=== PATIENT | male | born 1970 | race Caucasian/White ===

== ENCOUNTER 2018-07-19 11:58 | Emergency (ER) | payer OTHER ==
[2018-07-19] MEDS ORDERED: NS 0.9% 1000 ML** 1,000 ML IV ONE (12:15)
--- NOTE | 2018-07-19 12:23 | ED ---
Complex/Multi-Sys Presentation - HPI Summary HPI Summary: This pt is a 47 y/o male presenting to [facility] c/o generalized weakness and decreased energy. Pt reports diffuse general weakness. Additionally reports diffuse abd pain, mostly in the upper abdomen. He rates his pain 3/10 in severity. Denies cough, cold symptoms, headache, chest pain. 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 He is a heavy every day smoker, 3PPD. Denies any drug use. PMHx includes COPD, asthma, stage 4 liver cirrhosis, arthritis, abd hernia. Pt allergic to codeine, IV and PO dye, Penicillin, Tramadol. - History Of Current Complaint Chief Complaint: EDWeakness Time Seen by Provider: 07/19/18 12:11 Hx Obtained From: Patient Onset/Duration: Lasting Days, Still Present Timing: Days Severity Currently: Moderate Location: Pain At: - upper abdomen Aggravating Factor(s): nothing Alleviating Factor(s): nothing Associated Signs And Symptoms: Positive: Weakness - generalized, Abdominal Pain , Other - NEG: cold symptoms. Negative: Headache, Cough, Chest Pain, Fever - Allergies/Home Medications Allergies/Adverse Reactions: Allergies Allergy/AdvReac Type Severity Reaction Status Date / Time bee venom protein (honey bee) Allergy Severe Anaphylatic Verified 07/19/18 12:25 Shock codeine Allergy Intermediate Vomiting Verified 07/19/18 12:21 Iodinated Contrast- Oral and Allergy Intermediate Swelling Verified 07/19/18 12: 25 IV Dye Penicillins Allergy Intermediate Anaphylatic Verified 07/19/18 12:21 Shock tramadol Allergy Intermediate Vomiting Verified 07/19/18 12:21 Home Medications: Home Medications Albuterol HFA INHALER* [Ventolin HFA Inhaler*] 2 puff INH QID PRN 07/19/18 [ History Confirmed 07/19/18] Albuterol/Ipratropium RESP(NF) [Combivent Respimat(NF)] 1 puff INH DAILY [History Confirmed 07/19/18] Benzonatate CAP* [Tessalon 100 MG CAP*] 100 mg PO TID PRN 07/19/18 [History Confirmed 07/19/18] Cetirizine* [ZyrTEC 10 MG TAB*] 10 mg PO BEDTIME 07/19/18 [History Confirmed 06/03] Folic Acid TAB* [Folvite TAB*] 1 mg PO DAILY 07/19/18 [History Confirmed ] Furosemide TAB* [Lasix TAB*] 40 mg PO DAILY 07/19/18 [History Confirmed 07/19/18 ] Gabapentin CAP(*) [Neurontin 400 mg CAP(*)] 1,200 mg PO TID 07/19/18 [History Confirmed 07/19/18] Ibuprofen TAB* [Motrin TAB* 400 MG] 400 mg PO QID PRN 07/19/18 [History Confirmed 07/19/18] Lisinopril TAB* [Prinivil TAB*] 5 mg PO DAILY 07/19/18 [History Confirmed ] Nadolol TAB* [Corgard TAB*] 40 mg PO DAILY 07/19/18 [History Confirmed 07/19/18] Naloxone Nasal [place]* [Narcan Nasal [place]] 4 mg NASAL DAILY PRN 07/19/18 [ History Confirmed 07/19/18] Nicotine PATCH 21 MG/24 HR* 21 mg TRANSDERM DAILY 07/19/18 [History Confirmed ] Pantoprazole TAB * [Protonix TAB*] 40 mg PO DAILY 07/19/18 [History Confirmed ] Potassium Chlor TAB* [Klor Con ER TAB*] 10 meq PO DAILY 07/19/18 [History Confirmed 07/19/18] Spironolactone (NF) [Spironolactone 50 MG (NF)] 100 mg PO DAILY 07/19/18 [ History Confirmed 07/19/18] Ursodiol 250 mg PO TID 07/19/18 [History Confirmed 07/19/18] hydrOXYzine HCL TAB* [Atarax 25 MG TAB*] 25 mg PO QID PRN MDD 50 mg 07/19/18 [ History Confirmed 07/19/18] tiZANidine TAB* [Zanaflex TAB*] 4 mg PO TID 07/19/18 [History Confirmed 07/19/18 ] traZODone TAB* [Desyrel TAB*] 150 mg PO BEDTIME 07/19/18 [History Confirmed 06/03] PMH/Surg Hx/FS Hx/Imm Hx Endocrine/Hematology History: Denies: Hx Diabetes Cardiovascular History: Reports: Hx Hypertension Respiratory History: Reports: Hx Asthma, Hx Chronic Obstructive Pulmonary Disease (COPD) GI History: Reports: Hx Cirrhosis - Liver cirrhosis stage 4 Musculoskeletal History: Reports: Hx Arthritis Neurological History: Reports: Hx Seizures Infectious Disease History: No Infectious Disease History: Denies: Traveled Outside the [place] in Last 30 Days - Family History Known Family History: Negative: Cardiac Disease - Social History Alcohol Use: None Alcohol Amount: Former alcoholic, 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 Substance Use Type: Reports: Other Substance Use Comment - Amount & Last Used: 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 Smoking Status (MU): Heavy Every Day Tobacco Smoker Amount Used/How Often: 3 PPD Review of Systems Constitutional: Other - POS: decreased energy Negative: Fever ENT: Negative Negative: Chest Pain Negative: Cough Positive: Abdominal Pain Positive: Weakness - generalized. Negative: Headache All Other Systems Reviewed And Are Negative: Yes Physical Exam - Summary Physical Exam Summary: GENERAL: Patient is a well-developed and nourished male who is lying comfortable in the stretcher. Patient is not in any acute respiratory distress. HEAD AND FACE: Normocephalic EYES: PERRLA, EOMI x 2. EARS: Hearing grossly intact. MOUTH: Oropharynx within normal limits. NECK: Supple, trachea is midline, no adenopathy, no JVD, no carotid bruit. CHEST: Symmetric, no tenderness at palpation LUNGS: Clear to auscultation bilaterally. No wheezing or crackles. CVS: Regular rate and rhythm, S1 and S2 present, no murmurs or gallops appreciated. ABDOMEN: Soft, tenderness to palpation in the RUQ. No rebound or guarding. Bowel sounds are normal. No abnormal abdominal pulsations. EXTREMITIES: Full ROM in all major joints, no edema, no cyanosis or clubbing. NEURO: Alert and oriented x 3. Speech is normal and follows commands. Patient is lethargic. SKIN: Dry and warm GCS: 14 Triage Information Reviewed: Yes Vital Signs On Initial Exam: Initial Vitals Temp Pulse Resp BP Pulse Ox 97.7 F 66 18 100/60 96 07/19/18 12:07/19/18 12:07/19/18 12:07/19/18 12:07/19/18 12:01 Vital Signs Reviewed: Yes Diagnostics - Vital Signs Vital Signs Temp Pulse Resp BP Pulse Ox 07/19/18 12: 97.7 F 66 18 100/60 96 - Laboratory Result Diagrams: 07/19/18 12:58 07/19/18 13:07 Lab Statement: Any lab studies that have been ordered have been reviewed, and results considered in the medical decision making process. - Radiology Chest XR Radiology Interpretation Completed By: Radiologist Summary of Radiographic Findings: IMPRESSION: Hypoventilated exam with subsegmental atelectasis. Dr. Zacarias has reviewed this report. - CT Brain CT CT Interpretation Completed By: Radiologist Summary of CT Findings: IMPRESSION: No evidence for acute intracranial abnormality. Dr. Zacarias has reviewed this report. Abdomen/Pelvis CT CT Interpretation Completed By: Radiologist Summary of CT Findings: IMPRESSION: 1. No evidence for acute intra-abdominal abnormality. 2. The liver has a cirrhotic morphology with areas of decreased density. Recommend further evaluation to exclude a hepatic mass consider MRI imaging without and with contrast. 2. Varices and splenomegaly consistent with portal hypertension. 3. Cholelithiasis. 4. Small nonobstructing right renal calculus. 5. Mildly enlarged retroperitoneal lymph nodes. 6. Periumbilical hernia containing fat and varices. 7. Moderate to large amount retained stool. Dr. Zacarias has reviewed this report. - EKG 12:23 Cardiac Rate: NL - at 62 bpm EKG Rhythm: Sinus Rhythm Summary of EKG Findings: ST elevation, probable normal early repolarization. No reciprocal changes. Re-Evaluation - Re-Evaluation First Eval Re-Evaluation Time: 14:16 Comment: Reviewed results with pt. Discussed the admission plan with the pt. He understands and agrees. Second Eval Re-Evaluation Time: 17:37 Comment: Pt ambulated in the ED without difficulty. Complex Multi-Symp Course/Dx Assessment/Plan: Pt is a 47 y/o male, with significant PMHx of stage 4 liver cirrhosis, COPD, abd hernia, presents to [facility] c/o generalized weakness and decreased energy. On physical exam pt is lethargic and GCS is 14. Lab results remarkable for WBC of 2.9, H&H of 12.5/39, magnesium of 1.6, ammonia of 207. Brain CT is negative. Chest XR shows hypoventilated exam with subsegmental atelectasis. At 17:12 per hospitalist [employer] OPERATOR, pt is alert and oriented and pt can be discharged. I had presented the pt for admission to Dr. Gordon but they saw the pt and felt pt was much better and did not require admission at this time. Patient agrees with this plan. Pt ambulated in the ED without difficulty and a steady gait. Pt will be discharged home with a prescription for lactulose. - Diagnoses Provider Diagnoses: Increased ammonia level, Generalized weakness - Physician Notifications Discussed Care Of Patient With: Rboert Gordon - hospitalist Time Discussed With Above Provider: 14:11 Instructed by Provider To: Admit As Inpatient Discharge - Sign-Out/Discharge Documenting (check all that apply): Patient Departure - Discharge home Patient Received Moderate/Deep Sedation with Procedure: No - Discharge Plan Condition: Stable Disposition: HOME Prescriptions: Lactulose 10 gm PO DAILY 10 Days #300 ml Lactulose 10 gm PO DAILY #300 ml Patient Education Materials: Weakness (ED) Referrals: Adriana Dunn NP [Primary Care Provider] - Additional Instructions: Follow up with your primary care physician in 1-3 days. RETURN TO THE EMERGENCY DEPARTMENT FOR CHANGING OR WORSENING SYMPTOMS. - Billing Disposition and Condition Condition: STABLE Disposition: Home - Attestation Statements Document Initiated by Scribe: Yes Documenting Scribe: Madie Acosta Provider For Whom Savannahibe is Documenting (Include Credential): Eriberto Zacarias MD Scribe Attestation: Madie Valadez scribed for Eriberto Zacarias MD on 07/19/18 at 1920. Scribe Documentation Reviewed: Yes Provider Attestation: The documentation as recorded by the Madie nunez accurately reflects the service I personally performed and the decisions made by me, Eriberto Zacarias MD Status of Scribe Document: Viewed
[2018-07-19 13:26] LABS: Hematocrit 39 % (42-52); Hemoglobin 12.5 g/dL (14.0-18.0); Mean Corpuscular HGB Conc 32 g/dL (31-36); Mean Corpuscular Hemoglobin 25 pg (27-31); Mean Corpuscular Volume 78 fL (80-94); Red Blood Count 5.01 10^6 /uL (4.18-5.48); Red Cell Distribution Width 17 % (10.5-15); White Blood Count 2.9 10^3/uL (3.5-10.8)
[2018-07-19 13:31] LABS: Activated Partial Thrombo Time 35.5 seconds (26.0-38.0); INR 1.15 (0.82-1.09)
[2018-07-19 13:38] LABS: Troponin I 0.01 ng/mL (<0.04)
[2018-07-19 13:43] LABS: ALT 14 U/L (7-52); AST 17 U/L (13-39); Albumin 3.4 g/dL (3.2-5.2); Albumin/Globulin Ratio 1.2 (1-3); Alkaline Phosphatase 88 U/L (34-104); Anion Gap 2 mmol/L (2-11); BUN/Creatinine Ratio 12.6 (8-20); Blood Urea Nitrogen 12 mg/dL (6-24); C Reactive Protein < 1.00 mg/L (<8.01); CO2 Carbon Dioxide 28 mmol/L (22-32); Calcium 9.5 mg/dL (8.6-10.3); Chloride 106 mmol/L (101-111); EGFR African American 102.8 (>60); Globulin 2.8 g/dL (2-4); Glucose 152 mg/dL (70-100); Magnesium 1.6 mg/dL (1.9-2.7); Potassium 4.9 mmol/L (3.5-5.0); Sodium 136 mmol/L (135-145); Total Protein 6.2 g/dL (6.4-8.9)
[2018-07-19 13:57] LABS: TSH (Thyroid Stimulating Horm) 1.18 mcIU/mL (0.34-5.60)
[2018-07-19 14:28] LABS: ABS Eosinophils 0.1 10^3/ul (0-0.6); ABS Lymphocytes 0.7 10^3/ul (1.0-4.8); ABS Monocytes 0.3 10^3/ul (0-0.8); ABS Neutrophils 1.9 10^3/ul (1.5-7.7); Eosinophil % 1.9 %; Lymphocyte % 24.3 %; Mean Platelet Volume 8.4 fL (7.4-10.4); Nucleated Red Blood Cells % 0.1; Platelet Count 73 10^3/uL (150-450)
[2018-07-19 14:58] LABS: Urine Appearance Clear; Urine Bilirubin Negative (Negative); Urine Blood Negative (Negative); Urine Color Yellow; Urine Glucose Negative (Negative); Urine Ketones Negative (Negative); Urine Nitrite Negative (Negative); Urine Protein Negative (Negative); Urine Specific Gravity 1.009 (1.010-1.030); Urine Urobilinogen Negative (Negative)
[2018-07-19 15:05] LABS: Urine Benzodiazepine Screen None Detected (None Detect); Urine Opiates Screen None Detected (None Detect)
[2018-07-19 18:37] VITALS: BP 110/63
--- NOTE | 2018-07-20 05:00 | CONS ---
CC: HELDER Maya; [facility] Facility * [facility] MEDICINE CONSULTATION REPORT: DATE OF CONSULT: 07/19/18 PROVIDER: Carmella Hansen NP ATTENDING PHYSICIAN: Dr. Zacarias, emergency room. CONSULTING PHYSICIAN: Dr. Robert Gordon (dictated by Carmella Hansen NP) REASON FOR CONSULT: Weakness. HISTORY OF PRESENT ILLNESS: Mr. Sanders is a 47-year-old male with a past medical history significant for hypertension, degenerative disk disease, hernia , stage 4 cirrhosis of the liver, arthritis, and history of seizures, who presented to the emergency room with complaints of weakness. The patient reports that he is currently mandated to stay at [facility]. He has been in [facility] for approximately 1 week. He has been mandated to stay there due to history of meth abuse. He reports he last used methamphetamines approximately 9 to 10 days ago. He reports that approximately 2 days ago, he had increased fatigue and felt weak and had body aches and abdominal pain, which he reports he related to coming off his meth. Due to the weakness and increased fatigue, the patient presented to the emergency room for further evaluation. While in the emergency room, the patient did receive IV fluids and lactulose. The patient had routine lab work done, which showed an ammonia level of 207 and magnesium level of 1.6, platelet count of 73. Due to these findings and the patient's weakness, we were asked to see and evaluate the patient for admission. PAST MEDICAL HISTORY: Significant for hypertension, degenerative disk disease, hernia, stage 4 cirrhosis of the liver, arthritis, and seizures. PAST SURGICAL HISTORY: Left ankle surgery, left hand surgery, tonsillectomy, appendectomy. MEDICATIONS: Home medications include: 1. Pantoprazole 40 mg p.o. daily. 2. Potassium 10 mEq p.o. daily. 3. Spironolactone 100 mg p.o. daily. 4. Gabapentin 1200 mg 3 times daily. 5. Tizanidine 4 mg 3 times daily. 6. Ursodiol 250 mg tablet, 1 tablet by mouth 3 times daily. 7. Combivent 1 puff daily. 8. Folic acid 1 mg daily. 9. Furosemide 40 mg p.o. daily. 10. Lisinopril 5 mg p.o. daily. 11. Nadolol 40 mg p.o. daily. 12. Nicotine patch 21 mcg p.o. daily. 13. Albuterol HFA inhaler 2 puffs as needed for shortness of breath. 14. Benzonatate 200 mg 1 capsule 3 times daily as needed for cough. 15. Hydroxyzine 25 mg 4 times daily as needed. 16. Ibuprofen 400 mg 1 tablet 4 times a day as needed for pain. 17. Sertraline 10 mg p.o. daily. 18. Trazodone 150 mg at bedtime. ALLERGIES: CODEINE, IODINE, PENICILLIN, TORADOL, TRAMADOL, , BEE VENOM. FAMILY HISTORY: No reported history of coronary artery disease, diabetes, or cancer. SOCIAL HISTORY: The patient reports that prior to being admitted to [facility], he smoked 3 packs a day. He denies any alcohol use in the last 15 years. He does report methamphetamine abuse, last used approximately 9 days ago. He is disabled. He is . Surrogate decision maker in the event he is unable to make his own decision is his , Khloe. He is a full code. REVIEW OF SYSTEMS: He denies any fever or unintended weight loss, chest pain, or edema. He does report cough . He denies any hemoptysis or shortness of breath. No nausea, vomiting or diarrhea. He does report some right upper quadrant abdominal pain. Denies any gross hematuria, dysuria, focal weakness, sensory loss, facial complaints, dysphagia, arthralgias, myalgias, rashes, lesions, or open sores. Denies any psychosis or anxiety. PHYSICAL EXAM: General: At this time, Mr. Sanders is alert and oriented. Resting on the stretcher in the emergency room. He does reports he feels better after receiving IV fluids. Vital Signs: Blood pressure 110/63, heart rate is 66, respirations 16, O2 saturation is 97%, temperature is 98.4. HEENT: Head is atraumatic, normocephalic. Eyes: EOMs are intact. Sclerae anicteric and not pale. Oral mucosa appeared to be moist. Neck is supple. Lungs are clear to auscultation bilaterally. No wheezes, rales, or rhonchi. Cardiac: S1, S2, regular rate and rhythm. No murmurs, rubs, or gallops. Abdomen is round and soft. He does have mild tenderness noted to his right upper quadrant. Bowel sounds are present x4. Extremities: He is able to move all 4 extremities. He does have mild lower extremity edema. Pedal pulses are + 2 bilaterally. Skin is intact. Neurologic: He is awake, alert and oriented x3. Speech is clear. Thought process is intact. DIAGNOSTIC STUDIES/LAB DATA: WBCs are 2.9, RBCs 5.01, hemoglobin 12.5, hematocrit 39, platelet count 73. INR was 1.15. Sodium 136, potassium 4.9, chloride 106, carbon dioxide was 28, anion gap 2, BUN 12, creatinine 0.95, glucose 152, lactic acid 1.2, calcium 9.5, magnesium 1.6. ASTs were 17, ALTs were 14, alkaline phosphatase was 88. Ammonia was 207. C-reactive protein was less than 1. TSH was 1.18. Urine was within normal limits with the exception of specific gravity was 1.009. Toxicology was negative. He had a chest x-ray, radiologist's impression: Hypoventilation with subsegmental atelectasis. He had a CT of the abdomen and pelvis, radiologist's impression: No evidence of acute intraabdominal abnormalities. The liver has cirrhotic morphology with areas of decreased density. Recommend further evaluation to exclude hepatic mass, consider MRI imaging without and with contrast, varices and splenomegaly consistent with portal hypertension, cholelithiasis, small amount of obstructing renal calculus, mildly enlarged retroperitoneal lymph nodes, periumbilical hernia containing fat and varices. [id number] volume of retained stool. He had a CT of the brain, radiologist's impression: No evidence of acute intracranial abnormality. He had an electrocardiogram, which shows sinus rhythm at the rate of 62. RECOMMENDATIONS: Mr. Sanders is a 47-year-old male with a past medical history of hypertension, hernia, stage 4 cirrhosis of the liver, arthritis, history of seizures, who presented with weakness and increased fatigue. The patient is feeling better after IV fluids. 1. Weakness. I suspect his weakness could be related to withdrawal from methamphetamines. The patient does feel better after receiving a liter of IV fluids. The patient also did receive lactulose 30 cc in the emergency room and he is more alert. He was able to walk the full length of the emergency room without difficulty using his cane. His gait was steady. Given that the patient 's symptoms have improved with IV fluids, I suspect this is probably maybe withdrawal from the methamphetamines and he would be stable to return to [facility] facility. 2. Elevated ammonia level. The patient does have chronic stage 4 cirrhosis of the liver. He does have an elevated ammonia level. The patient was given lactulose. I would recommend continuing lactulose to maintain 2 to 3 bowel movements daily and repeat an ammonia level in 3 days. The patient should resume all previous medications as prescribed by [facility] for his chronic medical conditions. The patient does not have any acute pathology of underlying infection at this time and there is no indication or need for admission. At this time, I recommend the patient be discharged back to [facility]. He should continue on lactulose to maintain 3 bowel movements daily. 3. Hypomagnesium. The patient should be placed on magnesium oxide 400 mg p.o. daily. 4. The patient should follow up with a primary care provider in 4 to 7 days. He should return to the emergency room if he develops any chest pain or shortness of breath, increased lethargy, or any other concerning symptoms. I have discussed this with Dr. Zacarias in the emergency room. I have also discussed this plan with Dr. Gordon, who is in agreement with my plan. TIME SPENT: Time spent on this consultation was 60 minutes, greater than half that time was spent at the bedside reviewing the events leading thus far to this hospitalization, performing my physical exam, and reviewing my plan of care. I have discussed this with my attending, Dr. Robert Gordon, and emergency room attending, Dr. Zacarias. CARMELLA HANSEN, TRUCK CRANE OPERATOR [id number]/[facility] #: [id number] ANITA
== END 2018-07-19 18:37 | disposition home or self-care (01) ==
LOC: ED 11:58
DX: M62.81 Muscle weakness (generalized) (principal); E72.20 Disorder of urea cycle metabolism, unspecified; K74.60 Unspecified cirrhosis of liver; J44.9 Chronic obstructive pulmonary disease, unspecified; F17.210 Nicotine dependence, cigarettes, uncomplicated; I10 Essential (primary) hypertension; J45.909 Unspecified asthma, uncomplicated; Z88.0 Allergy status to penicillin; Z88.5 Allergy status to narcotic agent
CPT/HCPCS: 36415; 70450; 71046; 74176; 80053; 80307; 81003; 82140; 83605; 83735; 84443; 84484; 85025; 85060; 85610; 85730; 86140; 86141; 87040; 93005; 96360; 96361; 99283; A9270-GY

== ENCOUNTER 2018-07-24 13:30 | Observation (INO) | payer OTHER ==
--- NOTE | 2018-07-24 13:44 | ED ---
Abdominal Pain/Male - HPI Summary HPI Summary: A 47 y/o M brought in by ambulance presents to ED for AMS onset [employer]. At bedside , he also complains of muscles spasms ongoing for 2-3 weeks. He says he fell asleep at breakfast and became unresponsive. He's very somnolent at bedside and slow to answer questions. 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 Denies pedal edema. PMHx: Cirrhosis Stage IV; umbilical hernia x2. Patient quit drinking 15 years ago. - History of Current Complaint Chief Complaint: EDAltMentalStatus Stated Complaint: AMS PER EMS Time Seen by Provider: 07/24/18 13:37 Hx Obtained From: Patient Onset/Duration: Lasting Hours, Still Present Timing: Constant Pain Intensity: 0 Pain Scale Used: 0-10 Numeric Associated Signs And Symptoms: Positive: Other - pos: muscle spasms. neg: pedal edema - Allergies/Home Medications Allergies/Adverse Reactions: Allergies Allergy/AdvReac Type Severity Reaction Status Date / Time bee venom protein (honey bee) Allergy Severe Anaphylatic Verified 07/24/18 13:36 Shock codeine Allergy Intermediate Vomiting Verified 07/24/18 13:36 Iodinated Contrast- Oral and Allergy Intermediate Swelling Verified 07/24/18 13: 36 IV Dye Penicillins Allergy Intermediate Anaphylatic Verified 07/24/18 13:36 Shock tramadol Allergy Intermediate Vomiting Verified 07/24/18 13:36 Home Medications: Home Medications Melatonin 5 mg PO BEDTIME PRN 07/24/18 [History Confirmed 07/24/18] PMH/Surg Hx/FS Hx/Imm Hx Previously Healthy: No Endocrine/Hematology History: Denies: Hx Diabetes Cardiovascular History: Reports: Hx Coronary Artery Disease, Hx Hypertension Respiratory History: Reports: Hx Asthma, Hx Chronic Obstructive Pulmonary Disease (COPD) GI History: Reports: Hx Cirrhosis - Liver cirrhosis stage 4 Musculoskeletal History: Reports: Hx Arthritis Neurological History: Reports: Hx Seizures Infectious Disease History: No Infectious Disease History: Denies: Traveled Outside the [place] in Last 30 Days - Family History Known Family History: Positive: Unknown Negative: Cardiac Disease - Social History Occupation: Unemployed Lives: Residential - [facility] Alcohol Use: None Alcohol Amount: Former alcoholic, 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 Skin: The skin is warm and dry and skin color reflects adequate perfusion. HEENT: The head is normocephalic and atraumatic. The pupils are equal and reactive. The conjunctivae are clear and without drainage. Nares are patent and without drainage. Mouth reveals moist mucous membranes and the throat is without erythema and exudate. The external ears are intact. The ear canals are patent and without drainage. The tympanic membranes are intact. Neck: the neck is supple with full range of motion and non-tender. There are no carotid bruits. There is no neck vein distension. Respiratory: Chest is non-tender. Lungs are clear to auscultation and breath sounds are symmetrical and equal. Cardiovascular: Heart is regular rate and rhythm. There is no murmur or rub auscultated. There is no peripheral edema and pulses are symmetrical and equal. Abdomen: The abdomen is distended, soft and non-tender. There are normal bowel sounds heard in all four quadrants and there is no organomegaly palpated. Umbilical hernia. Musculoskeletal: There is no back tenderness noted. Extremities are non-tender with full range of motion. There is good capillary refill. There is no peripheral edema or calf tenderness elicited. Neurological: Patient is alert and oriented to person, place and time. The patient has symmetrical motor strength in all four extremities. Cranial nerves are grossly intact. Deep tendon reflexes are symmetrical and equal in all four extremities. Psychiatric: The patient has an appropriate affect and does not exhibit any anxiety or depression. Triage Information Reviewed: Yes Vital Signs On Initial Exam: Initial Vitals Temp Pulse Resp BP Pulse Ox 98.5 F 66 16 112/60 95 07/24/18 13:31 07/24/18 13:31 07/24/18 13:31 07/24/18 13:31 07/24/18 13:31 Vital Signs Reviewed: Yes Diagnostics - Vital Signs Vital Signs Temp Pulse Resp BP Pulse Ox 07/24/18 13:31 98.5 F 66 16 112/60 95 - Laboratory Result Diagrams: 07/24/18 14:18 07/24/18 14:18 Lab Statement: Any lab studies that have been ordered have been reviewed, and results considered in the medical decision making process. - EKG 1420 Cardiac Rate: NL - 62 bpm EKG Rhythm: Sinus Rhythm ST Segment: Normal - no STEMI Ectopy: None Abdominal Pain Male Course/Dx - Course Course Of Treatment: Mr. Sanders is an inpatient at [facility] for meth. He states that he stopped drinking alcohol 10 years ago but has subsequently been diagnosed 3-4 years ago with cirrhosis. He was sent over from [facility] for being lethargic. He was nontoxic in appearance but was indeed quite sleepy although he would arouse easily and answer questions seemingly appropriately. His vitals were stable. His ammonia level returned at 173 and I requested the hospitalist to evaluate him for admission. It seems so he is taking lactulose at [facility]. - Diagnoses Provider Diagnoses: Hepatic encephalopathy - Provider Notifications Discussed Care Of Patient With: Sugey Holden - hospitalist Time Discussed With Above Provider: 15:35 Instructed by Provider To: Admit As Inpatient Discharge - Sign-Out/Discharge Documenting (check all that apply): Patient Departure - ADMIT Patient Received Moderate/Deep Sedation with Procedure: No - Discharge Plan Condition: Stable Disposition: ADMITTED TO [facility] - Billing Disposition and Condition Condition: STABLE Disposition: Admitted to [facility] - Attestation Statements Document Initiated by Scribe: Yes Documenting Scribe: Jonatan Mcleod Provider For Whom Scribe is Documenting (Include Credential): Dr. César Stern MD Scribe Attestation: IJonatan scribed for Dr. César Stern MD on 07/24/18 at 1833. Scribe Documentation Reviewed: Yes Provider Attestation: The documentation as recorded by the Jonatan nunez accurately reflects the service I personally performed and the decisions made by me, Dr. César Stern MD Status of Scribe Document: Viewed
[2018-07-24 14:31] LABS: INR 1.15 (0.82-1.09)
[2018-07-24 14:41] LABS: ALT 11 U/L (7-52); AST 17 U/L (13-39); Albumin 3.6 g/dL (3.2-5.2); Albumin/Globulin Ratio 1.3 (1-3); Alkaline Phosphatase 83 U/L (34-104); Anion Gap 6 mmol/L (2-11); BUN/Creatinine Ratio 16.7 (8-20); Blood Urea Nitrogen 18 mg/dL (6-24); CO2 Carbon Dioxide 25 mmol/L (22-32); Calcium 9.6 mg/dL (8.6-10.3); Chloride 104 mmol/L (101-111); EGFR African American 88.7 (>60); EGFR Non-African American 73.3 (>60); Globulin 2.7 g/dL (2-4); Glucose 137 mg/dL (70-100); Magnesium 1.8 mg/dL (1.9-2.7); Potassium 4.7 mmol/L (3.5-5.0); Sodium 135 mmol/L (135-145); Total Protein 6.3 g/dL (6.4-8.9)
[2018-07-24 14:42] LABS: ABS Eosinophils 0.1 10^3/ul (0-0.6); ABS Lymphocytes 1.1 10^3/ul (1.0-4.8); ABS Monocytes 0.4 10^3/ul (0-0.8); ABS Neutrophils 1.9 10^3/ul (1.5-7.7); Eosinophil % 2.9 %; Hematocrit 39 % (42-52); Hemoglobin 12.5 g/dL (14.0-18.0); Lymphocyte % 30.6 %; Mean Corpuscular HGB Conc 33 g/dL (31-36); Mean Corpuscular Hemoglobin 25 pg (27-31); Mean Corpuscular Volume 77 fL (80-94); Mean Platelet Volume 8.7 fL (7.4-10.4); Nucleated Red Blood Cells % 0.1; Platelet Count 60 10^3/uL (150-450); Red Cell Distribution Width 17 % (10-15); White Blood Count 3.5 10^3/uL (3.5-10.8)
[2018-07-24 14:43] LABS: Troponin I 0.01 ng/mL (<0.04)
[2018-07-24 15:15] LABS: Acetaminophen < 15 mcg/mL; Alcohol < 10 mg/dL (<10); Salicylate < 2.50 mg/dL (<30)
[2018-07-24 15:29] LABS: Urine Appearance Clear; Urine Bilirubin Negative (Negative); Urine Blood Negative (Negative); Urine Color Yellow; Urine Glucose Negative (Negative); Urine Ketones Negative (Negative); Urine Nitrite Negative (Negative); Urine Protein Negative (Negative); Urine Specific Gravity 1.008 (1.010-1.030); Urine Urobilinogen Negative (Negative)
[2018-07-24 15:47] LABS: Urine Benzodiazepine Screen None Detected (None Detect); Urine Opiates Screen None Detected (None Detect)
[2018-07-24] MEDS ORDERED: Magnesium Sulfate 2 GM IV* 2 GM/50 ML BAG IVPB ONE (15:48)
[2018-07-24] MEDS ORDERED: NS 0.9% 1000 ML** 1,000 ML IV SCH (16:15)
[2018-07-24] MEDS ORDERED: Albuterol HFA INHALER* 8 gm MDI INH PRN (16:20)
[2018-07-24] MEDS ORDERED: Melatonin 3 MG TAB PO PRN (16:20)
[2018-07-24] MEDS ORDERED: hydrOXYzine HCL TAB* 25 MG PO PRN (16:20)
[2018-07-24 16:37] LABS: % Iron Saturation 29 % (15-55); Iron 124 ug/dL (50-212); Total Iron Binding Capacity 427 mcg/dL (250-450); Transferrin 305 mg/dL (203-362)
[2018-07-24 16:59] LABS: Ferritin 14.7 ng/mL (24-336)
--- NOTE | 2018-07-24 18:17 | HP ---
CC: [facility] Inpatient Rehabilitation * HISTORY AND PHYSICAL: DATE OF ADMISSION: 07/24/18 PRIMARY CARE PROVIDER: [facility] Inpatient Rehabilitation. ATTENDING PHYSICIAN: Dr. Holden * (dictated by Katherine Durand NP). CHIEF COMPLAINT: Altered mental status. HISTORY OF PRESENT ILLNESS: Mr. Sanders is a 47-year-old male with a past medical history significant for hypertension, DDD, hernia, stage 4 cirrhosis, arthritis, seizures, who presented to the emergency department today with altered mental status. It should be noted that the patient was also seen here on 07/19/18 with similar complaints. The patient was evaluated in the emergency department prior with IV fluid and lactulose and discharged back to [facility]. The patient reports that he was in his normal state of health for a few days, but then gradually became more fatigued and weak. He reports today he fell asleep while eating lunch with the fork still in his hand. He reports because of this, he was brought to the emergency department. The patient reports feeling tired and lethargic and having involuntary twitching. He reports these symptoms have been present since he was seen here on 07/19/18, after his admission they gradually got better, but have returned. The patient denies fevers, recent illness, anorexia, chest pain, edema, cough, shortness of breath, nausea, vomiting, diarrhea, abdominal pain, gross hematuria, dysuria, focal weakness, visual changes, sore throat, rashes or lesions, psychosis or anxiety. While in the emergency department, the patient had labs which revealed normocytic anemia with a hemoglobin of 12.5 and hematocrit of 39. In addition, he also is noted to have low platelets at 60,000. The patient also was noted to have an ammonia of 173. Given these findings and the patient's lethargy, the hospitalists were asked to evaluate for admission. PAST MEDICAL HISTORY: 1. Hypertension. 2. DDD. 3. Hernia. 4. Stage 4 cirrhosis. 5. Arthritis. 6. Seizures. PAST SURGICAL HISTORY: 1. Left ankle surgery. 2. Left hand surgery. 3. Tonsillectomy. 4. Appendectomy. ALLERGIES: 1. BEE VENOM. 2. CODEINE. 3. CONTRAST DYE. 4. PENICILLIN. 5. TRAMADOL. FAMILY HISTORY: The patient reports his dad from [place]. The patient reports he is estranged from his mother. The patient reports he has 2 living sisters, which he is estranged from. The patient reports both of his paternal grandparents had hemorrhagic strokes. The patient reports there is diabetes on both paternal and maternal side. The patient reports there is cancer on paternal side. SOCIAL HISTORY: The patient smokes 3 packs per day. The patient used to be a heavy drinker, but stopped about 15 years ago. The patient is in [facility] for meth use. He reports last meth use was greater than 2 weeks ago. REVIEW OF SYSTEMS: A 14-point review of systems was performed and all pertinent positive and negative findings are in the HPI. All other systems are negative. PHYSICAL EXAMINATION GENERAL: Mr. Sanders is a 47-year-old male who is well nourished, well developed , lying on the ED stretcher. He appears to be in no acute distress. He appears stated age. VITAL SIGNS: Temp 98.5, HR 66, RR 16, O2 saturation 95%, BP 112/60. HEENT: EOMs intact. PERRLA. Oral mucosa is moist without lesion. Posterior pharynx is clear. NECK: Full range of motion. No lymphadenopathy. RESPIRATORY: Symmetrical chest expansion. No accessory muscle use. Lungs are clear to auscultation. No rhonchi, wheezes, or rubs. CV: Regular rate and rhythm. S1, S2 present. No murmurs, rubs, or gallops. EXTREMITIES: Skin is warm and smooth bilaterally. No edema. No clubbing or cyanosis. Pedal pulses are 2+ bilaterally. MUSCULOSKELETAL: Full range of motion. No pain or deformities. ABDOMEN: Abdomen is soft to palpation. The patient reports mild tenderness to upper right quadrant. Bowel sounds are normoactive. NEURO: The patient is awake, alert, and oriented x4. Cranial nerves II through XII are grossly intact. Sensation intact. Coordination intact. He moves all extremities. Motor strength is 5/5 in upper and lower extremities. The patient has occasional involuntary twitch noted of his upper extremities. SKIN: Grossly intact without lesions. DIAGNOSTIC STUDIES/LAB DATA: WBC 3.5, hemoglobin 12.5, hematocrit 39, MCV 77, MCH 25, platelets 60,000. INR 1.15. Sodium 135, potassium 4.7, chloride 104, carbon dioxide 25, BUN 18, creatinine 1.08, glucose 137, magnesium 1.8, ammonia 173. ASSESSMENT AND PLAN: Mr. Sanders is a 47-year-old male with a past medical history significant for hypertension, degenerative disk disease, hernia, stage 4 cirrhosis, arthritis, seizures, who presented to the emergency department today with altered mental status and was found to have possible hepatic encephalopathy. 1. Altered mental status. We suspect the patient's altered mental status is secondary to his elevated ammonia. The patient has been on lactulose 15 mL p.o. daily. Given his elevated levels today of 173 and the previously elevated level of 207 on 07/19/18, we will increase the patient's lactulose to 30 mL t.i.d. while he is hospitalized. It should be mentioned that the patient had a brain CT on 07/19/18, which was unremarkable. Additionally, the differential could be the fact that the patient is on gabapentin at 1200 mg t.i.d. and this could be accumulating and causing him to be sedated. Unfortunately, I cannot hold this medication as he reports he is on it for seizures, therefore I will place parameters to hold for sedation. In addition, given his history of seizures, I will order an EEG. 2. Right upper quadrant tenderness: As mentioned above in assessment, the patient did complain of some right upper quadrant tenderness at the palpation of his abdomen. In reviewing his chart, I see that he had a CT abdomen and pelvis on 07/19/18, which revealed the liver has a cirrhotic morphology with areas of decreased density. Recommending further evaluation to exclude hepatic mass, consider MRI without and with contrast. Given this report and the patient 's tenderness, I have ordered an MRI as recommended. It should also be mentioned that this CT revealed varices and splenomegaly consistent with portal hypertension, cholelithiasis, small nonobstructing renal calculi, mildly enlarged retroperitoneal lymph nodes, periumbilical hernia containing fat and varices, moderate to large amount of retained stool. 3. Meth abuse: As mentioned in HPI, the patient is currently residing at the [facility] inpatient facility mandatorily for meth abuse. We will refrain from providing opioids if possible and we will monitor the patient. 4. Hypertension: The patient is on multiple medications for hypertension. He is currently normotensive. We will continue the patient's home medications. 5. Degenerative disk disease. The patient has a history of degenerative disk disease and it appears that he takes ibuprofen at home, which I am going to currently hold. We will provide supportive care. 6. Hernia: The patient has 2 abdominal hernias, which were seen on CT on previous admission. Supportive care and further monitoring. 7. Stage 4 cirrhosis: As mentioned above, the patient's ammonia is elevated. We will be providing lactulose. We will also obtain further imaging given the findings on CT on 07/19/18. 8. Seizures: We will continue the patient's gabapentin with holding parameters. We will order an EEG. We will order neuro checks. We will order seizure precautions. 9. FEN: The patient will be provided with a regular diet. 10. Code status: The patient is a full code. 11. Surrogate decision maker: The patient's surrogate decision maker will be his , Khloe, [phone]. 12. DVT prophylaxis: Based on the DVT risk assessment, the patient is low risk. I will order ambulation and SCDs. TIME SPENT: Approximately 65 minutes were spent on this admission, greater than half of that time was spent with the patient obtaining my history, performing my physical exam, and reviewing my plan of care. This case has been reviewed with my attending, Dr. Holden, who is in agreement with my plan of care. KATHERINE DURAND NP [id number]/[facility] #: [id number] ANITA
[2018-07-24] MEDS: Gabapentin CAP(*) 400 MG PO SCH (20:06)
[2018-07-24] MEDS: tiZANidine TAB* 2 MG PO SCH (20:07)
[2018-07-24] MEDS: Cetirizine* 10 MG TAB PO SCH (20:08)
[2018-07-24] MEDS ORDERED: Gabapentin CAP(*) 400 MG PO SCH (21:00)
[2018-07-24] MEDS: traZODone TAB* 100 MG PO SCH (22:18)
[2018-07-24] MEDS: Ursodiol CAP* 300 MG PO SCH (22:21)
[2018-07-25 06:41] LABS: ABS Eosinophils 0.1 10^3/ul (0-0.6); ABS Lymphocytes 0.8 10^3/ul (1.0-4.8); ABS Monocytes 0.3 10^3/ul (0-0.8); Eosinophil % 1.8 %; Hematocrit 40 % (42-52); Hemoglobin 12.9 g/dL (14.0-18.0); Lymphocyte % 24.1 %; Mean Corpuscular HGB Conc 32 g/dL (31-36); Mean Corpuscular Hemoglobin 25 pg (27-31); Mean Corpuscular Volume 77 fL (80-94); Mean Platelet Volume 8.6 fL (7.4-10.4); Platelet Count 51 10^3/uL (150-450); Red Blood Count 5.15 10^6 /uL (4.18-5.48); Red Cell Distribution Width 17 % (10-15); White Blood Count 3.2 10^3/uL (3.5-10.8)
[2018-07-25 06:53] LABS: Albumin 3.6 g/dL (3.2-5.2); Albumin/Globulin Ratio 1.4 (1-3); BUN/Creatinine Ratio 17.4 (8-20); Calcium 9.1 mg/dL (8.6-10.3); EGFR African American 115.3 (>60); EGFR Non-African American 95.3 (>60); Globulin 2.6 g/dL (2-4); Indirect Bilirubin 0.7 mg/dL (0.3-1.0); Magnesium 1.9 mg/dL (1.9-2.7); Potassium 4.3 mmol/L (3.5-5.0); Total Bilirubin 0.9 mg/dL (0.2-1.0); Total Protein 6.2 g/dL (6.4-8.9)
[2018-07-25] MEDS: Albuterol/Ipratropium NEB.SOL* Albuterol 2.5 MG/Ipratropium 0.5 MG 3 ML INH SCH (07:33)
[2018-07-25] MEDS ORDERED: Gadoxetate* (CONTRAST) 181.43 MG/ML 10 ML SDV IV ONE (09:11)
[2018-07-25] MEDS: Ursodiol CAP* 300 MG PO SCH ×3 (09:38→20:22)
[2018-07-25] MEDS: Spironolactone TAB* 25 MG PO SCH (09:38)
[2018-07-25] MEDS: Furosemide TAB* 40 MG PO SCH (09:39)
[2018-07-25] MEDS: Lisinopril TAB* 5 MG PO SCH (09:39)
[2018-07-25] MEDS: Pantoprazole TAB * 40 MG TAB PO SCH (09:39)
[2018-07-25] MEDS: Folic Acid TAB* 1 MG PO SCH (09:39)
[2018-07-25] MEDS: tiZANidine TAB* 2 MG PO SCH ×3 (09:39→20:24)
[2018-07-25] MEDS: Gabapentin CAP(*) 400 MG PO SCH ×3 (09:39→20:22)
[2018-07-25] MEDS: Potassium Chlor TAB* 10 MEQ TAB.ER PO SCH (09:40)
[2018-07-25] MEDS: Nadolol TAB* 40 MG PO SCH (09:40)
[2018-07-25] MEDS: Nicotine PATCH 21 MG/24 HR* PATCH TRANSDERM SCH (09:40)
[2018-07-25] MEDS ORDERED: Gadoxetate* (CONTRAST) 181.43 MG/ML 10 ML SDV IV SCH (10:00)
--- NOTE | 2018-07-25 10:43 | PN ---
Subjective Date of Service: 07/25/18 Interval History: Was admitted for altered mental status, and abdominal pain. This morning, seen and evaluated, reports feeling okay, still confused, having some muscle cramps. no abdominal pain, Objective Active Medications: Albuterol (Ventolin Hfa Inhaler*) 2 puff INH QID PRN PRN Reason: SHORTNESS OF BREATH Albuterol/Ipratropium (Duoneb (Albuterol 2.5 Mg/Ipratropium 0.5 Mg)) 1 neb INH DAILY [facility]; Protocol Last Admin: 07/25/18 07:33 Dose: 1 neb Cetirizine HCl (Zyrtec*) 10 mg PO BEDTIME [facility] Last Admin: 07/24/18 20:08 Dose: 10 mg Folic Acid (Folvite Tab*) 1 mg PO DAILY [facility] Last Admin: 07/25/18 09:39 Dose: 1 mg Furosemide (Lasix Tab*) 40 mg PO DAILY [facility] Last Admin: 07/25/18 09:39 Dose: 40 mg Gabapentin (Neurontin Cap(*)) 1,200 mg PO TID [facility] Last Admin: 07/25/18 09:39 Dose: 1,200 mg Gadoxetate Disodium (Eovist* (Contrast)) 10 ml IV ONCE [facility] Stop: 07/27/18 09:10 Hydroxyzine HCl (Atarax Tab*) 25 mg PO QID PRN PRN Reason: ANXIETY Last Admin: 07/24/18 20:05 Dose: 25 mg Lactulose (Lactulose*) 30 ml PO TID [facility] Last Admin: 07/25/18 09:40 Dose: 30 ml Lisinopril (Prinivil Tab*) 5 mg PO DAILY [facility] Last Admin: 07/25/18 09:39 Dose: 5 mg Melatonin (Melatonin) 6 mg PO BEDTIME PRN PRN Reason: INSOMNIA Last Admin: 07/24/18 22:18 Dose: 6 mg Nadolol (Corgard Tab*) 40 mg PO DAILY [facility] Last Admin: 07/25/18 09:40 Dose: 40 mg Nicotine (Nicotine Patch 21 Mg/24 Hr*) 1 patch TRANSDERM DAILY [facility] Last Admin: 07/25/18 09:40 Dose: 1 patch Pantoprazole Sodium (Protonix Tab*) 40 mg PO DAILY [facility] Last Admin: 07/25/18 09:39 Dose: 40 mg Pharmacy Profile Note (Nicotine Patch Removal Note*) 1 note PATCH OFF 2099 [facility] Potassium Chloride (Klor Con Er Tab*) 10 meq PO DAILY [facility] Last Admin: 07/25/18 09:40 Dose: 10 meq Spironolactone (Aldactone Tab*) 100 mg PO DAILY [facility] Last Admin: 07/25/18 09:38 Dose: 100 mg Tizanidine HCl (Zanaflex Tab*) 4 mg PO TID [facility] Last Admin: 07/25/18 09:39 Dose: 4 mg Trazodone HCl (Desyrel Tab*) 150 mg PO BEDTIME [facility] Last Admin: 07/24/18 22:18 Dose: 150 mg Ursodiol (Actigall Cap*) 300 mg PO TID [facility] Last Admin: 07/25/18 09:38 Dose: 300 mg Vital Signs - 8 hr 07/25/18 07/25/18 07/25/18 02:53 03:15 07:37 Temperature 97.4 F Pulse Rate 72 70 Respiratory 18 15 Rate Blood Pressure 100/42 124/58 (mmHg) O2 Sat by Pulse 97 98 Oximetry 07/25/18 09:39 Temperature Pulse Rate Respiratory 18 Rate Blood Pressure (mmHg) O2 Sat by Pulse Oximetry Appearance: Lying in bed, not in distress Eyes: PERRLA Ears/Nose/Mouth/Throat: Mucous Membranes Moist, - - no scleral icterus Neck: - Respiratory: Clear to Auscultation Cardiovascular: NL Sounds; No Murmurs; No JVD, RRR Abdominal: - - mild abdominal tenderness, non distended, bowel sounds normoactive Neurological: - - AA/ O X 2 (person/place) Result Diagrams: 07/25/18 06:27 07/25/18 06:27 Microbiology and Other Data: Microbiology 07/24/18 20:00 Stool Occult Blood (JULIA) - Final Stool Assess/Plan/Problems-Billing Assessment: 47 year old Male with alcoholic liver cirrhosis, history of substance use here with altered mental status and abdominal pain. - Patient Problems (1) Hepatic encephalopathy Current Visit: Yes Status: Acute Code(s): K72.90 - HEPATIC FAILURE, UNSPECIFIED WITHOUT COMA SNOMED Code(s): 78869855 Comment: continue lactulose, ammonia trending upwards, but mentation slighlty improved today, will monitor. (2) Liver cirrhosis Current Visit: Yes Status: Acute Comment: continue nadolol, spironolactone, lasix. (3) Substance use disorder Current Visit: Yes Status: Acute Code(s): F19.90 - OTHER PSYCHOACTIVE SUBSTANCE USE, UNSPECIFIED, UNCOMPLICATED SNOMED Code(s): 954438662 (4) Abdominal pain Current Visit: Yes Status: Acute Code(s): R10.9 - UNSPECIFIED ABDOMINAL PAIN SNOMED Code(s): 67796509 Comment: improved, MRI shows liver cirrhosis nothing acute, recent CT scan was also done. has hx of gallstones, on urosidol (5) Thrombocytopenia Current Visit: Yes Status: Acute Code(s): D69.6 - THROMBOCYTOPENIA, UNSPECIFIED SNOMED Code(s): 832886218 Comment: monitor, due to liver cirrhosis, no active bleeding noted (6) DVT prophylaxis Current Visit: Yes Status: Acute Code(s): Z29.9 - ENCOUNTER FOR PROPHYLACTIC MEASURES, UNSPECIFIED SNOMED Code(s): 470205686 Comment: SCD, has low platlets
--- NOTE | 2018-07-25 12:12 | EEG ---
ELECTROENCEPHALOGRAPHY: DATE OF STUDY: 07/25/18 DATE READ: 07/25/18 ORDERED BY: Katherine Gatica NP. CLINICAL PROBLEM: Mr. Sanders is a 47-year-old right-handed man who presented with alteration in ment al status in conjunction with an elevated ammonia level. This EEG was obtained to evaluate for epile ptiform abnormalities or to assess the degree of encephalopathy. MEDICATIONS: 1. Furosemide. 2. Gabapentin. 3. Lactulose. 4. Lisinopril. 5. Nadolol. 6. Nicotine patch. 7. Pantoprazole. 8. Potassium. 9. Spironolactone. 10. Tizanidine. 11. Ursodiol. 12. Cetirizine. 13. Trazodone. 14. Hydroxyzine. 15. Melatonin. 16. DuoNeb. 17. Ventolin. CLINICAL STATE: Awake and drowsy. TIMIN:03 to 10:28. REPORT: The background lacked organization of clearly defined anterior-posterior voltage and frequen cy gradients. There was no discernible posterior dominant rhythm. Instead, the background consisted of diffuse medium-amplitude, polymorphic, 2 to 7 Hz delta and theta range slowing. At times, the de lta slowing became sharply contoured and took on a triphasic morphology most predominantly in the fro ntal region bilaterally. There was emergence of some faster frequency with verbal and tactile stimul ation. Hyperventilation and photic stimulation were not performed. Single electrode EKG showed a no rmal sinus rhythm with a rate of 75 beats per minute. Throughout the recording, there were no epilep tiform discharges. CLINICAL IMPRESSION: This is an abnormal EEG due to the presence of diffuse, but reactive slowing wi th triphasic waves. These findings are suggestive of a nonspecific [id number] diffuse encephal opathy with triphasic waves predominantly seen in hepatic encephalopathy. [id number]/[facility] #: [id number]
[2018-07-25] MEDS: RiFAXimin* 550 MG TAB PO SCH ×2 (14:09→20:22)
[2018-07-25] MEDS: Cetirizine* 10 MG TAB PO SCH (20:22)
[2018-07-25] MEDS: traZODone TAB* 100 MG PO SCH (20:23)
[2018-07-25] MEDS ORDERED: Nicotine Patch Removal NOTE PATCH OFF SCH (21:00)
[2018-07-26] MEDS: Albuterol/Ipratropium NEB.SOL* Albuterol 2.5 MG/Ipratropium 0.5 MG 3 ML INH SCH (08:10)
[2018-07-26] MEDS: Gabapentin CAP(*) 400 MG PO SCH ×2 (09:08→13:13)
[2018-07-26] MEDS: RiFAXimin* 550 MG TAB PO SCH (09:08)
[2018-07-26] MEDS: Ursodiol CAP* 300 MG PO SCH ×2 (09:08→13:13)
[2018-07-26] MEDS: tiZANidine TAB* 2 MG PO SCH ×2 (09:08→13:13)
[2018-07-26] MEDS: Lisinopril TAB* 5 MG PO SCH (09:08)
[2018-07-26] MEDS: Pantoprazole TAB * 40 MG TAB PO SCH (09:09)
[2018-07-26] MEDS: Nadolol TAB* 40 MG PO SCH (09:09)
[2018-07-26] MEDS: Potassium Chlor TAB* 10 MEQ TAB.ER PO SCH (09:09)
[2018-07-26] MEDS: Folic Acid TAB* 1 MG PO SCH (09:10)
[2018-07-26] MEDS: Furosemide TAB* 40 MG PO SCH (09:10)
[2018-07-26] MEDS: Spironolactone TAB* 25 MG PO SCH (09:10)
[2018-07-26] MEDS: Nicotine PATCH 21 MG/24 HR* PATCH TRANSDERM SCH (09:14)
--- NOTE | 2018-07-26 09:40 | PN ---
Subjective Date of Service: 07/26/18 Interval History: He is more lucid today, reports yesterday was a blur. More interactive today. Reports no abdominal pain Objective Active Medications: Albuterol (Ventolin Hfa Inhaler*) 2 puff INH QID PRN PRN Reason: SHORTNESS OF BREATH Albuterol/Ipratropium (Duoneb (Albuterol 2.5 Mg/Ipratropium 0.5 Mg)) 1 neb INH DAILY [facility]; Protocol Last Admin: 07/26/18 08:10 Dose: Not Given Cetirizine HCl (Zyrtec*) 10 mg PO BEDTIME [facility] Last Admin: 07/25/18 20:22 Dose: 10 mg Folic Acid (Folvite Tab*) 1 mg PO DAILY [facility] Last Admin: 07/26/18 09:10 Dose: 1 mg Furosemide (Lasix Tab*) 40 mg PO DAILY [facility] Last Admin: 07/26/18 09:10 Dose: 40 mg Gabapentin (Neurontin Cap(*)) 1,200 mg PO TID [facility] Last Admin: 07/26/18 09:08 Dose: 1,200 mg Gadoxetate Disodium (Eovist* (Contrast)) 10 ml IV ONCE [facility] Stop: 07/27/18 09:10 Hydroxyzine HCl (Atarax Tab*) 25 mg PO QID PRN PRN Reason: ANXIETY Last Admin: 07/24/18 20:05 Dose: 25 mg Lactulose (Lactulose*) 30 ml PO QID [facility] Last Admin: 07/26/18 09:08 Dose: 30 ml Lisinopril (Prinivil Tab*) 5 mg PO DAILY [facility] Last Admin: 07/26/18 09:08 Dose: 5 mg Melatonin (Melatonin) 6 mg PO BEDTIME PRN PRN Reason: INSOMNIA Last Admin: 07/24/18 22:18 Dose: 6 mg Nadolol (Corgard Tab*) 40 mg PO DAILY [facility] Last Admin: 07/26/18 09:09 Dose: 40 mg Nicotine (Nicotine Patch 21 Mg/24 Hr*) 1 patch TRANSDERM DAILY [facility] Last Admin: 07/26/18 09:14 Dose: 1 patch Pantoprazole Sodium (Protonix Tab*) 40 mg PO DAILY [facility] Last Admin: 07/26/18 09:09 Dose: 40 mg Pharmacy Profile Note (Nicotine Patch Removal Note*) 1 note PATCH OFF 2099 [facility] Last Admin: 07/25/18 20:39 Dose: 1 note Potassium Chloride (Klor Con Er Tab*) 10 meq PO DAILY [facility] Last Admin: 07/26/18 09:09 Dose: 10 meq Rifaximin (Xifaxan*) 550 mg PO BID [facility] Last Admin: 07/26/18 09:08 Dose: 550 mg Spironolactone (Aldactone Tab*) 100 mg PO DAILY [facility] Last Admin: 07/26/18 09:10 Dose: 100 mg Tizanidine HCl (Zanaflex Tab*) 4 mg PO TID [facility] Last Admin: 07/26/18 09:08 Dose: 4 mg Trazodone HCl (Desyrel Tab*) 150 mg PO BEDTIME [facility] Last Admin: 07/25/18 20:23 Dose: 150 mg Ursodiol (Actigall Cap*) 300 mg PO TID [facility] Last Admin: 07/26/18 09:08 Dose: 300 mg Vital Signs - 8 hr 07/26/18 07/26/18 02:35 09:08 Temperature 97.5 F Pulse Rate 68 Respiratory 16 16 Rate Blood Pressure 101/47 (mmHg) O2 Sat by Pulse 98 Oximetry Oxygen Devices in Use Now: None Appearance: On the phone, not in distress Eyes: No Scleral Icterus, PERRLA Respiratory: Clear to Auscultation Cardiovascular: NL Sounds; No Murmurs; No JVD, RRR Abdominal: NL Sounds; No Tenderness; No Distention, No Hepatosplenomegaly Skin: - - tattoos Neurological: Alert and Oriented x 3, - - no tremors Result Diagrams: 07/25/18 06:27 07/25/18 06:27 Microbiology and Other Data: Microbiology 07/24/18 20:00 Stool Occult Blood (JULIA) - Final Stool Assess/Plan/Problems-Billing Assessment: 47 year old Male with alcoholic liver cirrhosis, history of substance use here with altered mental status and abdominal pain. - Patient Problems (1) Hepatic encephalopathy Current Visit: Yes Status: Acute Code(s): K72.90 - HEPATIC FAILURE, UNSPECIFIED WITHOUT COMA SNOMED Code(s): 11128624 Comment: continue lactulose, ammonia trending downwards.,mentation significantly improved. added rifaximin yesterday. (2) Liver cirrhosis Current Visit: Yes Status: Acute Comment: continue nadolol, spironolactone, lasix. (3) Substance use disorder Current Visit: Yes Status: Acute Code(s): F19.90 - OTHER PSYCHOACTIVE SUBSTANCE USE, UNSPECIFIED, UNCOMPLICATED SNOMED Code(s): 860119700 (4) Abdominal pain Current Visit: Yes Status: Acute Code(s): R10.9 - UNSPECIFIED ABDOMINAL PAIN SNOMED Code(s): 15903983 Comment: improved, MRI shows liver cirrhosis nothing acute, recent CT scan was also done. has hx of gallstones, on urosidol (5) Thrombocytopenia Current Visit: Yes Status: Acute Code(s): D69.6 - THROMBOCYTOPENIA, UNSPECIFIED SNOMED Code(s): 387748728 Comment: monitor, due to liver cirrhosis, no active bleeding noted (6) DVT prophylaxis Current Visit: Yes Status: Acute Code(s): Z29.9 - ENCOUNTER FOR PROPHYLACTIC MEASURES, UNSPECIFIED SNOMED Code(s): 332245619 Comment: SCD, has low platlets Status and Disposition: Plan for discharge later today if continues to be interactive,and alert.
[2018-07-26 10:19] VITALS: BP 103/58
--- NOTE | 2018-07-26 15:53 | DS ---
CC: Adriana Dunn NP; HELDER Camargo; Gisell Yee in [place] DISCHARGE SUMMARY: DATE OF ADMISSION: 07/24/18 DATE OF DISCHARGE: 07/26/18 PRIMARY CARE PROVIDER: Adriana Dunn NP REASON FOR ADMISSION: Altered mental status, abdominal pain. HOSPITAL COURSE: This is a 47-year-old male with past medical history of hypertension, stage 4 liver cirrhosis, drug use, who now presents to the emergency room from his [facility] for drug rehab because of altered mental status as well as right upper quadrant abdominal pain. On admission, the patient was found to have some twitching as well as altered mental status. For this, the patient was found to have elevated ammonia level. The patient has been on lactulose 15 mL oral daily, however, upon admission, because of the elevated ammonia level, we increased the lactulose to 30 mL 3 times a day. Further, the patient was taking several medications at home including tizanidine as well as gabapentin as well as trazodone that could have contributed to his altered mental status. So those medications were held while inpatient. EEG was also ordered. Regarding his right upper quadrant, the patient had recent CAT scan done, which did not have any acute pathology. MRI of the abdomen was ordered and the patient was sent to the medical floor. The patient had an EEG done which showed abnormal EEG due to presence of diffuse but reactive slowing of the triphasic waves. These findings are suggestive of nonspecific [id number] diffuse encephalopathy which could be seen in hepatic encephalopathy. The patient also underwent an abdominal MRI which showed the liver had cirrhotic morphology, splenomegaly, and prominent varices with portal hypertension, cholelithiasis as well as slight complex right renal cyst. The patient continued to improve with his mentation. He was alert, oriented x3 the day of discharge, was able to walk without any issues. The patient was cooperative, answered all questions appropriately and thus was determined safe to be discharged. CONDITION: FAIR, for my physical exam from today see the progress note. DISCHARGE MEDICATIONS: 1. Lactulose 30 mL 3 times a day, this has been changed from his home medication regimen. 2. Albuterol 2 puffs every 6 hours as needed. 3. Albuterol/ipratropium, Combivent all 1 puff inhale daily. 4. Cetirizine 10 mg at bedtime. 5. Folic acid 1 mg daily. 6. Furosemide 40 mg daily. 7. Hydroxyzine 25 mg every 6 hours as needed for anxiety. 8. Lactulose as mentioned above. 9. Melatonin 5 mg at bedtime as needed for insomnia. 10. Nadolol 40 mg daily. 11. Nicotine patch 21 mg daily. 12. Pantoprazole 40 mg daily. 13. Potassium chloride tablets 10 mEq daily. 14. Spironolactone 100 mg daily. 15. Tizanidine 4 mg 3 times a day. 16. Trazodone 150 mg at bedtime. 17. Ursodiol 250 mg 3 times a day. 18. Gabapentin 1200 mg 3 times a day. 19. Lisinopril 5 mg daily. 20. Naloxone 4 mg as needed per protocol. DISCHARGE DIAGNOSES: Includes: 1. Hepatic encephalopathy. 2. Liver cirrhosis. 3. Polysubstance abuse. DISPOSITION: The patient is to be discharged back to his [facility] substance abuse rehab facility. DIET: As tolerated. ACTIVITY: As tolerated. [id number]/[facility] #: [id number] ANTIA
== END 2018-07-26 14:00 | disposition home or self-care (01) ==
LOC: ED 13:30 → MED 16:13
PROVIDERS: ADMIT Internal Medicine; ATTEND Internal Medicine
DX: K72.90 Hepatic failure, unspecified without coma (principal); K74.60 Unspecified cirrhosis of liver; F19.10 Other psychoactive substance abuse, uncomplicated; R41.82 Altered mental status, unspecified; R10.9 Unspecified abdominal pain; Z88.0 Allergy status to penicillin; F17.210 Nicotine dependence, cigarettes, uncomplicated; I25.10 Atherosclerotic heart disease of native coronary artery without angina pectoris; I10 Essential (primary) hypertension; D69.6 Thrombocytopenia, unspecified; K80.20 Calculus of gallbladder without cholecystitis without obstruction
CPT/HCPCS: 36415; 36600; 74183; 80048; 80053; 80076; 80307; 80320; 80329; 81003; 82140; 82270; 82607; 82728; 82746; 82803; 83540; 83550; 83605; 83735; 84484; 85025; 85610; 93005; 94640; 95819; 96365; 96366; 99283; 99406; A9270-GY; A9581; G0378; G0480; J3475

== ENCOUNTER 2018-08-13 21:32 | Emergency (ER) | payer OTHER ==
[2018-08-14 01:20] LABS: Hematocrit 39 % (42-52); Hemoglobin 13.2 g/dL (14.0-18.0); Mean Corpuscular HGB Conc 34 g/dL (31-36); Mean Corpuscular Hemoglobin 27 pg (27-31); Mean Corpuscular Volume 77 fL (80-94); Mean Platelet Volume 8.1 fL (7.4-10.4); Platelet Count 76 10^3/uL (150-450); Red Blood Count 4.99 10^6 /uL (4.18-5.48); Red Cell Distribution Width 20 % (10-15); White Blood Count 5.5 10^3/uL (3.5-10.8)
[2018-08-14 01:25] LABS: Albumin/Globulin Ratio 1.3 (1-3); BUN/Creatinine Ratio 23.5 (8-20); C Reactive Protein 1.31 mg/L (<8.01); Calcium 9.7 mg/dL (8.6-10.3); EGFR African American 123.6 (>60); EGFR Non-African American 102.1 (>60); Potassium 4.4 mmol/L (3.5-5.0); Total Bilirubin 0.6 mg/dL (0.2-1.0)
[2018-08-14 01:56] LABS: ABS Eosinophils 0.2 10^3/ul (0-0.6); ABS Lymphocytes 1.4 10^3/ul (1.0-4.8); ABS Monocytes 0.5 10^3/ul (0-0.8); ABS Neutrophils 3.4 10^3/ul (1.5-7.7)
[2018-08-14 02:49] LABS: Urine Appearance Clear; Urine Bilirubin Negative (Negative); Urine Blood Negative (Negative); Urine Color Straw; Urine Glucose Negative (Negative); Urine Ketones Negative (Negative); Urine Nitrite Negative (Negative); Urine Protein Negative (Negative); Urine Specific Gravity 1.005 (1.010-1.030); Urine Urobilinogen Negative (Negative)
--- NOTE | 2018-08-14 04:11 | ED ---
Abdominal Pain/Male - HPI Summary HPI Summary: A 47 y/o male presents to [facility] with a chief complaint of fluid buildup of his abdomen. The patient has cirrhosis and reports drinking for 20 years. He c/o abdominal pain and rates his pain as an 8/10 in severity. He says that his abdomen has "gotten bigger" over the past month. He also reports back and leg pain. The patient is at [facility] rehab. - History of Current Complaint Chief Complaint: EDAbdPain Stated Complaint: BUILDING OF FLUID PER PT Hx Obtained From: Patient Onset/Duration: Sudden Onset, Lasting Weeks, Still Present Timing: Constant Severity Initially: Moderate Severity Currently: Severe Pain Intensity: 8 Pain Scale Used: 0-10 Numeric Location: Diffuse Radiates to: Back, Other - legs Character: Other: - unable to describe Aggravating Factor(s): Nothing Alleviating Factor(s): Nothing Associated Signs And Symptoms: Positive: Back Pain, Other - leg pain. Negative : Fever - Allergies/Home Medications Allergies/Adverse Reactions: Allergies Allergy/AdvReac Type Severity Reaction Status Date / Time bee venom protein (honey bee) Allergy Severe Anaphylatic Verified 08/13/18 21:36 Shock codeine Allergy Intermediate Vomiting Verified 08/13/18 21:36 Iodinated Contrast- Oral and Allergy Intermediate Swelling Verified 08/13/18 21: 36 IV Dye Penicillins Allergy Intermediate Anaphylatic Verified 08/13/18 21:36 Shock tramadol Allergy Intermediate Vomiting Verified 08/13/18 21:36 PMH/Surg Hx/FS Hx/Imm Hx Endocrine/Hematology History: Denies: Hx Diabetes Cardiovascular History: Reports: Hx Coronary Artery Disease, Hx Hypertension Denies: Hx Pacemaker/ICD Respiratory History: Reports: Hx Asthma, Hx Chronic Obstructive Pulmonary Disease (COPD) GI History: Reports: Hx Cirrhosis - Liver cirrhosis stage 4 Musculoskeletal History: Reports: Hx Arthritis Sensory History: Reports: Hx Contacts or Glasses - reading Denies: Hx Hearing Aid Opthamlomology History: Reports: Hx Contacts or Glasses - reading Neurological History: Reports: Hx Seizures Psychiatric History: Denies: Hx Panic Disorder - Surgical History Surgery Procedure, Year, and Place: ANKLE, HAND Infectious Disease History: No Infectious Disease History: Denies: Traveled Outside the [place] in Last 30 Days - Family History Known Family History: Negative: Cardiac Disease - Social History Alcohol Use: None Alcohol Amount: Former alcoholic, 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 Hx Substance Use: Yes Substance Use Type: Reports: Other Substance Use Comment - Amount & Last Used: 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 Hx Tobacco Use: Yes Smoking Status (MU): Heavy Every Day Tobacco Smoker Type: Cigarettes Amount Used/How Often: 3 PPD Review of Systems Negative: Fever Positive: Abdominal Pain Positive: Myalgia - back and leg pain All Other Systems Reviewed And Are Negative: Yes Physical Exam - Summary Physical Exam Summary: VITAL SIGNS: Reviewed. GENERAL: Patient is a well-developed and nourished MALE who is lying comfortable in the stretcher. Patient is not in any acute respiratory distress. HEAD AND FACE: No signs of trauma. No ecchymosis, hematomas or skull depressions. No sinus tenderness. EYES: PERRLA, EOMI x 2, No injected conjunctiva, no nystagmus. EARS: Hearing grossly intact. Ear canals and tympanic membranes are within normal limits. MOUTH: Oropharynx within normal limits. NECK: Supple, trachea is midline, no adenopathy, no JVD, no carotid bruit, no c- spine tenderness, neck with full ROM CHEST: Symmetric, no tenderness at palpation LUNGS: Clear to auscultation bilaterally. No wheezing or crackles. CVS: Regular rate and rhythm, S1 and S2 present, no murmurs or gallops appreciated. ABDOMEN: Soft, non-tender. No signs of distention. No rebound no guarding, and no masses palpated. Bowel sounds are normal. EXTREMITIES: FROM in all major joints, no edema, no cyanosis or clubbing. NEURO: Alert and oriented x 3. No acute neurological deficits. Speech is normal and follows commands. SKIN: Dry and warm Triage Information Reviewed: Yes Vital Signs On Initial Exam: Initial Vitals Temp Pulse Resp BP Pulse Ox 98.4 F 69 18 139/86 99 08/13/18 21:34 08/13/18 21:34 08/13/18 21:34 08/13/18 21:34 08/13/18 21:34 Vital Signs Reviewed: Yes Diagnostics - Vital Signs Vital Signs Temp Pulse Resp BP Pulse Ox 08/14/18 04:00 76 154/85 99 08/14/18 03:30 80 147/92 98 08/14/18 03:00 74 150/89 98 08/14/18 02:30 77 155/85 98 08/14/18 02:02 75 154/100 100 08/14/18 02:00 77 172/103 97 08/13/18 23:54 99.3 F 82 16 156/71 989 08/13/18 21:34 98.4 F 69 18 139/86 99 - Laboratory Lab Results: Lab Results 08/14/18 08/14/18 08/14/18 Range/Units 01:01 01:01 01:01 WBC 5.5 (3.5-10.8) 10^3/uL RBC 4.99 (4.18-5.48) 10^6 /uL Hgb 13.2 L (14.0-18.0) g/dL Hct 39 L (42-52) % MCV 77 L (80-94) fL MCH 27 (27-31) pg MCHC 34 (31-36) g/dL RDW 20 H (10-15) % Plt Count 76 L (150-450) 10^3/uL MPV 8.1 (7.4-10.4) fL Neut % (Auto) 62.5 % Lymph % (Auto) 25.0 % [place] % (Auto) 9.2 % Eos % (Auto) 3.0 % Baso % (Auto) 0.3 % Absolute Neuts (auto) 3.4 (1.5-7.7) 10^3/ul Absolute Lymphs (auto) 1.4 (1.0-4.8) 10^3/ul Absolute Monos (auto) 0.5 (0-0.8) 10^3/ul Absolute Eos (auto) 0.2 (0-0.6) 10^3/ul Absolute Basos (auto) 0.0 (0-0.2) 10^3/ul Absolute Nucleated RBC 0.0 10^3/ul Nucleated RBC % 0.0 Hem Pathologist Commnt Pending Sodium 135 (135-145) mmol/L Potassium 4.4 (3.5-5.0) mmol/L Chloride 106 (101-111) mmol/L Carbon Dioxide 24 (22-32) mmol/L Anion Gap 5 (2-11) mmol/L BUN 19 (6-24) mg/dL Creatinine 0.81 (0.67-1.17) mg/dL Est GFR ( Amer) 123.6 (>60) Est GFR (Non-Af Amer) 102.1 (>60) BUN/Creatinine Ratio 23.5 H (8-20) Glucose 127 H (70-100) mg/dL Lactic Acid 0.8 (0.5-2.0) mmol/L Calcium 9.7 (8.6-10.3) mg/dL Total Bilirubin 0.60 (0.2-1.0) mg/dL AST 31 (13-39) U/L ALT 20 (7-52) U/L Alkaline Phosphatase 78 (34-104) U/L C-Reactive Protein 1.31 (<8.01) mg/L Total Protein 7.0 (6.4-8.9) g/dL Albumin 4.0 (3.2-5.2) g/dL Globulin 3.0 (2-4) g/dL Albumin/Globulin Ratio 1.3 (1-3) Amylase 38 (29-103) U/L Lipase 65 (11.0-82.0) U/L Urine Color Urine Appearance Urine pH (5-9) Ur Specific [place] (1.010-1.030) Urine Protein (Negative) Urine Ketones (Negative) Urine Blood (Negative) Urine Nitrate (Negative) Urine Bilirubin (Negative) Urine Urobilinogen (Negative) Ur Leukocyte Esterase (Negative) Urine Glucose (Negative) 08/14/18 Range/Units 02:33 WBC (3.5-10.8) 10^3/uL RBC (4.18-5.48) 10^6 /uL Hgb (14.0-18.0) g/dL Hct (42-52) % MCV (80-94) fL MCH (27-31) pg MCHC (31-36) g/dL RDW (10-15) % Plt Count (150-450) 10^3/uL MPV (7.4-10.4) fL Neut % (Auto) % Lymph % (Auto) % [place] % (Auto) % Eos % (Auto) % Baso % (Auto) % Absolute Neuts (auto) (1.5-7.7) 10^3/ul Absolute Lymphs (auto) (1.0-4.8) 10^3/ul Absolute Monos (auto) (0-0.8) 10^3/ul Absolute Eos (auto) (0-0.6) 10^3/ul Absolute Basos (auto) (0-0.2) 10^3/ul Absolute Nucleated RBC 10^3/ul Nucleated RBC % Hem Pathologist Commnt Sodium (135-145) mmol/L Potassium (3.5-5.0) mmol/L Chloride (101-111) mmol/L Carbon Dioxide (22-32) mmol/L Anion Gap (2-11) mmol/L BUN (6-24) mg/dL Creatinine (0.67-1.17) mg/dL Est GFR ( Amer) (>60) Est GFR (Non-Af Amer) (>60) BUN/Creatinine Ratio (8-20) Glucose (70-100) mg/dL Lactic Acid (0.5-2.0) mmol/L Calcium (8.6-10.3) mg/dL Total Bilirubin (0.2-1.0) mg/dL AST (13-39) U/L ALT (7-52) U/L Alkaline Phosphatase (34-104) U/L C-Reactive Protein (<8.01) mg/L Total Protein (6.4-8.9) g/dL Albumin (3.2-5.2) g/dL Globulin (2-4) g/dL Albumin/Globulin Ratio (1-3) Amylase (29-103) U/L Lipase (11.0-82.0) U/L Urine Color Straw Urine Appearance Clear Urine pH 7.0 (5-9) Ur Specific [place] 1.005 L (1.010-1.030) Urine Protein Negative (Negative) Urine Ketones Negative (Negative) Urine Blood Negative (Negative) Urine Nitrate Negative (Negative) Urine Bilirubin Negative (Negative) Urine Urobilinogen Negative (Negative) Ur Leukocyte Esterase Negative (Negative) Urine Glucose Negative (Negative) Result Diagrams: 08/14/18 01:01 08/14/18 01:01 Lab Statement: Any lab studies that have been ordered have been reviewed, and results considered in the medical decision making process. Abdominal Pain Male Course/Dx - Course Course Of Treatment: A 47 y/o male presents to [facility] with a chief complaint of fluid buildup of his abdomen. The physical exam was unremarkable. Blood work, chemistries and UA obtained and are WNL. The patient will be discharged home and follow up with his field care manager and PCP. He is agreeable with this plan. - Diagnoses Provider Diagnoses: Abdominal pain Discharge - Sign-Out/Discharge Documenting (check all that apply): Patient Departure - DC Patient Received Moderate/Deep Sedation with Procedure: No - Discharge Plan Condition: Stable Disposition: HOME Patient Education Materials: Abdominal Pain (ED) Referrals: Adriana Dunn NP [Primary Care Provider] - 3 Days Bebe Wilson MD [Medical Doctor] - Additional Instructions: PLEASE RETURN TO THE ED IMMEDIATELY FOR WORSENING OR CONCERNING SYMPTOMS. - Billing Disposition and Condition Condition: STABLE Disposition: Home - Attestation Statements Document Initiated by Scribe: Yes Documenting Scribe: Daryl Pratt Provider For Whom Scribe is Documenting (Include Credential): Elizabeth Wesley MD Scribe Attestation: Daryl Valadez scribed for Elizabeth Wesley MD on 08/14/18 at 0544. Scribe Documentation Reviewed: Yes Provider Attestation: The documentation as recorded by the Daryl nunez accurately reflects the service I personally performed and the decisions made by Kyle cummins MD Status of Scribe Document: Viewed
[2018-08-14 04:51] VITALS: BP 121/78
== END 2018-08-14 04:50 | disposition home or self-care (01) ==
LOC: ED 21:32
DX: R10.9 Unspecified abdominal pain (principal); I25.10 Atherosclerotic heart disease of native coronary artery without angina pectoris; I10 Essential (primary) hypertension; J44.9 Chronic obstructive pulmonary disease, unspecified; F17.210 Nicotine dependence, cigarettes, uncomplicated
CPT/HCPCS: 36415; 80053; 81003; 82150; 83605; 83690; 85025; 85060; 86140; 99283

== ENCOUNTER 2018-08-23 14:01 | Emergency (ER) | payer OTHER ==
--- NOTE | 2018-08-23 14:42 | ED ---
Adult Trauma - HPI Summary HPI Summary: Patient is a 47-year-old male living at [facility] presenting to the ED after a fall. He sees fall was mechanical and he "didn't quite make the chair." He is having pain to his low back as well as his left hip. He denies head injury. He denies any weakness or fatigue. He denies any CP or SOB. He states he has been otherwise well. 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 Denies any alcohol use. He denies any dysfunction with bladder or bowel at this time. He arrives by ambulance. Denies hitting his head or LOC. - History of Current Complaint Chief Complaint: EDDizziness Stated Complaint: DIZZY FALL Time Seen by Provider: 08/23/18 14:04 Hx Obtained From: Patient Mechanism of Injury: Direct Blow Ambulatory at the Scene: Yes Loss of Consciousness: no loss of consciousness Force: Low Restraints: None Onset/Duration: Started Hours Ago Onset of Pain: Hours Onset Severity: Moderate Current Severity: None Pain Intensity: 7 Pain Scale Used: 0-10 Numeric Aggravating Factor(s): Nothing Alleviating Factor(s): Nothing Associated Signs & Symptoms: Positive: Negative - Additional Pertinent History Primary Care Physician: [id number] - Allergy/Home Medications Allergies/Adverse Reactions: Allergies Allergy/AdvReac Type Severity Reaction Status Date / Time bee venom protein (honey bee) Allergy Severe Anaphylatic Verified 08/13/18 21:36 Shock codeine Allergy Intermediate Vomiting Verified 08/13/18 21:36 Iodinated Contrast- Oral and Allergy Intermediate Swelling Verified 08/13/18 21: 36 IV Dye Penicillins Allergy Intermediate Anaphylatic Verified 08/13/18 21:36 Shock tramadol Allergy Intermediate Vomiting Verified 08/13/18 21:36 Home Medications: Home Medications Acetaminophen TAB* [Tylenol TAB*] 650 mg PO Q6H PRN 08/23/18 [History Confirmed 08/23/18] Aspirin TAB* [Aspirin 325 MG TAB*] 325 mg PO DAILY PRN 08/23/18 [History Confirmed 08/23/18] Benzonatate CAP* [Tessalon 100 MG CAP*] 100 mg PO TID PRN 08/23/18 [History Confirmed 08/23/18] Bismuth Subsalicylate [Bismuth] 262 mg PO Q1HR PRN 08/23/18 [History Confirmed 08/23/18] Calcium Carbonate CHEW TAB* [Tums*] 500 - 1,000 mg PO BID PRN 08/23/18 [History Confirmed 08/23/18] Docusate CAP* [Colace Cap*] 100 mg PO BID PRN 08/23/18 [History Confirmed ] Eucalyptus/Menthol [Kang Cough Drops] 1 florin PO Q2HR 08/23/18 [History Confirmed 08/23/18] Fluticasone NASAL SPRAY 50MCG* [Flonase NASAL SPRAY 50MCG*] 2 spray BOTH NARES QAM 08/23/18 [History Confirmed 08/23/18] Magnesium Hydroxide LIQ* [Milk of Magnesia LIQ*] 30 ml PO DAILY PRN 08/23/18 [ History Confirmed 08/23/18] Multivitamins/Minerals TAB* [Theragran/minerals TAB*] 1 tab PO DAILY 08/23/18 [ History Confirmed 08/23/18] Nicotine PATCH 14 MG/24 HR* 14 mg TRANSDERM DAILY 08/23/18 [History Confirmed ] Polyethylene Glycol 3350* [Miralax*] 17 gm PO DAILY PRN 08/23/18 [History Confirmed 08/23/18] Saline NASAL SPRAY 0.65%* [Sodium Chloride 0.65% Nasal [place]*] 1 spray BOTH NARES Q4H PRN 08/23/18 [History Confirmed 08/23/18] diPHENhydraMINE PO* [Benadryl PO 50 MG CAP*] 50 mg PO BEDTIME PRN 08/23/18 [ History Confirmed 08/23/18] guaiFENesin ER TAB [Mucinex*] 1,200 mg PO BID PRN 08/23/18 [History Confirmed ] PMH/Surg Hx/FS Hx/Imm Hx Previously Healthy: Yes Endocrine/Hematology History: Denies: Hx Diabetes Cardiovascular History: Reports: Hx Coronary Artery Disease, Hx Hypertension Denies: Hx Pacemaker/ICD Respiratory History: Reports: Hx Asthma, Hx Chronic Obstructive Pulmonary Disease (COPD) GI History: Reports: Hx Cirrhosis - Liver cirrhosis stage 4 Musculoskeletal History: Reports: Hx Arthritis Sensory History: Reports: Hx Contacts or Glasses - reading Denies: Hx Hearing Aid Opthamlomology History: Reports: Hx Contacts or Glasses - reading Neurological History: Reports: Hx Seizures Psychiatric History: Denies: Hx Panic Disorder - Surgical History Surgery Procedure, Year, and Place: ANKLE, HAND - Immunization History Hx Pertussis Vaccination: No Immunizations Up to Date: Yes Infectious Disease History: No Infectious Disease History: Denies: Traveled Outside the [place] in Last 30 Days - Family History Known Family History: Positive: Unknown Negative: Cardiac Disease - Social History Occupation: Unemployed Lives: With Family Alcohol Use: None Alcohol Amount: Former alcoholic, 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 Hx Substance Use: Yes Substance Use Type: Reports: Other Substance Use Comment - Amount & Last Used: 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 Hx Tobacco Use: Yes Smoking Status (MU): Heavy Every Day Tobacco Smoker Type: Cigarettes Amount Used/How Often: 3 PPD Review of Systems Constitutional: Negative Negative: Fever, Chills, Fatigue, Skin Diaphoresis Negative: Palpitations, Chest Pain Negative: Shortness Of Breath, Cough Gastrointestinal: Negative Positive: Arthralgia, Myalgia Skin: Negative Neurological: Negative All Other Systems Reviewed And Are Negative: Yes Physical Exam Triage Information Reviewed: Yes Vital Signs On Initial Exam: Initial Vitals Temp Pulse Resp BP Pulse Ox 98.3 F 71 16 109/70 98 08/23/18 14:05 08/23/18 14:05 08/23/18 14:05 08/23/18 14:05 08/23/18 14:05 Vital Signs Reviewed: Yes Appearance: Positive: Well-Appearing, Well-Nourished Skin: Positive: Warm, Skin Color Reflects Adequate Perfusion Head/Face: Positive: Normal Head/Face Inspection Eyes: Positive: [place], Conjunctiva Clear Neck: Positive: Supple, No Lymphadenopathy Respiratory/Lung Sounds: Positive: Clear to Auscultation, Breath Sounds Present Cardiovascular: Positive: Pulses are Symmetrical in both Upper and Lower Extremities Musculoskeletal: Positive: Pain @ - left hip pain Neurological: Positive: Sensory/Motor Intact, Alert, Oriented to Person Place, Time, Speech Normal Psychiatric: Positive: Affect/Mood Appropriate AVPU Assessment: Alert Diagnostics - Vital Signs Vital Signs Temp Pulse Resp BP Pulse Ox 08/23/18 14:05 98.3 F 71 16 109/70 98 - Laboratory Result Diagrams: 08/23/18 14:51 08/23/18 14:51 Lab Statement: Any lab studies that have been ordered have been reviewed, and results considered in the medical decision making process. Adult Trauma Course/Dx - Course Course Of Treatment: On arrival into the ED, the patient's evaluated for acute low back pain and left hip pain. Patient arrives with externally rotated left leg. Denies any CP or SOB. Labs obtained. Left pelvis x-ray and hip obtained which was negative. Patient able to ambulate well but with some discomfort. labs obtained and ammonia is down from his previous visits. Patient states he is OK for discharge at this time. - Diagnoses Differential Diagnosis/HQI/PQRI: Positive: Sprain, Strain Provider Diagnoses: Fall Discharge - Sign-Out/Discharge Documenting (check all that apply): Patient Departure Patient Received Moderate/Deep Sedation with Procedure: No - Discharge Plan Condition: Stable Disposition: HOME Patient Education Materials: Hip Contusion (ED) Referrals: Adriana Dunn NP [Primary Care Provider] - Additional Instructions: Ibpurofen 600mg three times daily Moist heat to the area - Billing Disposition and Condition Condition: STABLE Disposition: Home
[2018-08-23 15:10] LABS: ABS Eosinophils 0.1 10^3/ul (0-0.6); ABS Lymphocytes 0.9 10^3/ul (1.0-4.8); ABS Monocytes 0.4 10^3/ul (0-0.8); ABS Neutrophils 2.1 10^3/ul (1.5-7.7); Eosinophil % 2.4 %; Hematocrit 38 % (42-52); Hemoglobin 12.7 g/dL (14.0-18.0); Lymphocyte % 25.8 %; Mean Corpuscular HGB Conc 33 g/dL (31-36); Mean Corpuscular Hemoglobin 26 pg (27-31); Mean Corpuscular Volume 79 fL (80-94); Nucleated Red Blood Cells % 0.2; Platelet Count 64 10^3/uL (150-450); Red Blood Count 4.83 10^6 /uL (4.18-5.48); Red Cell Distribution Width 21 % (10-15); White Blood Count 3.6 10^3/uL (3.5-10.8)
[2018-08-23 15:21] LABS: Albumin 3.6 g/dL (3.2-5.2); Albumin/Globulin Ratio 1.3 (1-3); BUN/Creatinine Ratio 21.9 (8-20); EGFR African American 83.3 (>60); EGFR Non-African American 68.9 (>60); Globulin 2.8 g/dL (2-4); Magnesium 1.7 mg/dL (1.9-2.7); Total Bilirubin 0.4 mg/dL (0.2-1.0); Total Protein 6.4 g/dL (6.4-8.9)
[2018-08-23 15:22] LABS: Troponin I 0.01 ng/mL (<0.04)
[2018-08-23 15:26] LABS: Potassium 5.1 mmol/L (3.5-5.0)
[2018-08-23] MEDS ORDERED: NS 0.9% 1000 ML** 1,000 ML IV ONE (15:32)
[2018-08-23 15:52] LABS: TSH (Thyroid Stimulating Horm) 1.75 mcIU/mL (0.34-5.60)
[2018-08-23] MEDS ORDERED: Ibuprofen TAB* 600 MG PO ONE (16:36)
[2018-08-23 17:06] VITALS: BP 128/75
== END 2018-08-23 16:59 | disposition home or self-care (01) ==
LOC: ED 14:01
DX: M54.5 Low back pain (principal); M25.552 Pain in left hip; W19.XXXA Unspecified fall, initial encounter; I25.10 Atherosclerotic heart disease of native coronary artery without angina pectoris; I10 Essential (primary) hypertension; K74.60 Unspecified cirrhosis of liver; J44.9 Chronic obstructive pulmonary disease, unspecified; F17.210 Nicotine dependence, cigarettes, uncomplicated; Z88.5 Allergy status to narcotic agent; Z88.0 Allergy status to penicillin; Z88.8 Allergy status to other drugs, medicaments and biological substances; Z91.041 Radiographic dye allergy status; Z79.82 Long term (current) use of aspirin; Z79.899 Other long term (current) drug therapy
CPT/HCPCS: 36415; 80053; 82140; 82550; 83605; 83735; 84443; 84484; 85025; 96360; 99283; A9270-GY

== ENCOUNTER 2018-08-30 19:12 | Emergency (ER) | payer OTHER ==
[2018-08-30] MEDS ORDERED: Acetaminophen TAB* 325 MG PO ONE (20:00)
[2018-08-30] MEDS ORDERED: levETIRAcetam TAB* 500 MG PO ONE (20:00)
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
[2018-08-30 20:24] LABS: Hematocrit 37 % (42-52); Hemoglobin 12.8 g/dL (14.0-18.0); Mean Corpuscular HGB Conc 35 g/dL (31-36); Mean Corpuscular Hemoglobin 27 pg (27-31); Mean Corpuscular Volume 78 fL (80-94); Mean Platelet Volume 8.3 fL (7.4-10.4); Platelet Count 69 10^3/uL (150-450); Red Blood Count 4.73 10^6 /uL (4.18-5.48); Red Cell Distribution Width 21 % (10-15); White Blood Count 4.4 10^3/uL (3.5-10.8)
[2018-08-30 20:29] LABS: INR 1.2 (0.82-1.09)
[2018-08-30 20:39] LABS: Albumin 3.6 g/dL (3.2-5.2); Albumin/Globulin Ratio 1.3 (1-3); BUN/Creatinine Ratio 20.6 (8-20); Calcium 8.9 mg/dL (8.6-10.3); EGFR Non-African American 58.7 (>60); Globulin 2.7 g/dL (2-4); Potassium 4.1 mmol/L (3.5-5.0); Total Bilirubin 0.5 mg/dL (0.2-1.0); Total Protein 6.3 g/dL (6.4-8.9)
[2018-08-30 20:51] LABS: ABS Eosinophils 0.1 10^3/ul (0-0.6); ABS Lymphocytes 1.2 10^3/ul (1.0-4.8); ABS Monocytes 0.5 10^3/ul (0-0.8); ABS Neutrophils 2.5 10^3/ul (1.5-7.7); Eosinophil % 3.1 %; Lymphocyte % 28.5 %; Nucleated Red Blood Cells % 0.1
[2018-08-30] MEDS ORDERED: NS 0.9% 1000 ML** 1,000 ML IV ONE (21:45)
[2018-08-30 22:30] VITALS: BP 109/76
== END 2018-08-30 22:29 | disposition home or self-care (01) ==
LOC: ED 19:12
DX: R56.9 Unspecified convulsions (principal); S06.0X9A Concussion with loss of consciousness of unspecified duration, initial encounter; S13.4XXA Sprain of ligaments of cervical spine, initial encounter; Y04.2XXA Assault by strike against or bumped into by another person, initial encounter; Y92.199 Unspecified place in other specified residential institution as the place of occurrence of the external cause; I25.10 Atherosclerotic heart disease of native coronary artery without angina pectoris; I10 Essential (primary) hypertension; J44.9 Chronic obstructive pulmonary disease, unspecified; F17.210 Nicotine dependence, cigarettes, uncomplicated; Z88.5 Allergy status to narcotic agent; Z88.0 Allergy status to penicillin; Z91.041 Radiographic dye allergy status; Z79.899 Other long term (current) drug therapy
CPT/HCPCS: 36415; 70450; 72125; 80053; 85025; 85610; 93005; 96360; 99283; A9270-GY